=== PATIENT | male | born 1940 | race Caucasian/White ===

== ENCOUNTER 2021-09-24 12:53 | Inpatient (IN) | payer MEDICARE ==
[2021-09-24 16:19] VITALS: BMI 24.7
[2021-09-24] MEDS ORDERED: Senokot S 8.6-50 MG TAB PO PRN (18:33)
[2021-09-24] MEDS ORDERED: Acetaminophen 325 MG TAB PO PRN (18:33)
[2021-09-24] MEDS ORDERED: Ondansetron PF 4 MG/2 ML Vial IVP PRN (18:33)
[2021-09-24] MEDS ORDERED: Ketoconazole 2% Cream 15 gm Tube TOP PRN (18:35)
[2021-09-24] MEDS ORDERED: HumaLOG 300 UNITS/3 ML VIAL SC PRN (19:15)
[2021-09-24] MEDS ORDERED: Dextrose 5% in Water 1,000 ML IV PRN (19:15)
[2021-09-24] MEDS ORDERED: Dextrose 50% Abboject 50 ML SYRINGE SLOW IVP PRN (19:15)
[2021-09-24] MEDS ORDERED: hydrALAZINE 20 MG/ML VIAL SLOW IVP PRN (19:15)
[2021-09-24] MEDS ORDERED: Meropenem 1 GM in Sodium Chloride 0.9% 100 ML IVPB SCH ×2 (20:00→22:00)
[2021-09-24] MEDS: Lactated Ringer's 1,000 ML IV SCH (21:09)
[2021-09-24] MEDS: Amlodipine 5 MG TAB PO SCH (22:06)
[2021-09-24] MEDS: Ezetimibe 10 MG TAB PO SCH (22:07)
[2021-09-24] MEDS: hydrALAZINE 25 MG TAB PO SCH (22:07)
[2021-09-24] MEDS: Finasteride 5 MG TAB PO SCH (22:07)
[2021-09-24] MEDS: Losartan 25 MG TAB PO SCH (22:07)
[2021-09-24] MEDS: Insulin Glargine 30 UNITS/0.3 ML VIAL SC SCH (22:08)
[2021-09-25] MEDS: Meropenem 1 GM in Sodium Chloride 0.9% 100 ML IVPB SCH ×2 (06:14→17:29)
[2021-09-25] MEDS: Levothyroxine Sodium 100 MCG TAB PO SCH (06:14)
[2021-09-25 07:16] LABS: #Basophils 0.1 thou/uL (0.0-0.2); #Eosinphils 0.5 thou/uL (0.0-0.7); #Lymphocytes 1.7 thou/uL (1.20-3.40); #Monocytes 0.5 thou/uL (0.11-0.59); #Neutrophils 5.1 thou/uL (1.40-6.50); %Basophils 0.8 % (0.0-1.0); %Eosinophils 6.5 % (0.0-10.0); %Lymphocytes 21.8 % (21.0-51.0); %Monocytes 6.9 % (0.0-10.0); Hemoglobin 9.4 g/dL (14.0-18.0); Mean Corpuscular HGB CONC 33.3 g/dL (32.0-36.0); Mean Corpuscular Hemoglobin 30.1 pg (27.0-31.0); Mean Corpuscular Volume 90.5 fL (78.0-98.0); Mean Platelet Volume 7.3 fL (7.4-10.4); Platelet Count 260 thou/uL (130-400); RBC Distribution Width 12.5 % (11.5-14.5); Red Blood Cell (RBC) Count 3.12 mill/uL (4.70-6.10); White Blood Cell (WBC) Count 7.9 thou/uL (4.8-10.8)
[2021-09-25 07:36] LABS: Anion Gap 12 mmol/L (10-20); BUN (Urea Nitrogen) 38 mg/dL (8.4-25.7); Calc. Creatinine Clearance 43 mL/min (70-130); Calcium 8.7 mg/dL (7.8-10.44); Carbon Dioxide 16 mmol/L (23-31); Chloride 109 mmol/L (98-107); Glucose 148 mg/dL (83-110); Sodium 132 mmol/L (136-145)
[2021-09-25] MEDS: Losartan 25 MG TAB PO SCH ×2 (08:47→22:10)
[2021-09-25] MEDS: Aspirin Chewable 81 MG TAB PO SCH (08:47)
[2021-09-25] MEDS: Loratadine 10 MG TAB PO SCH (08:48)
[2021-09-25] MEDS: LACTINEX 1 TAB PO SCH (08:48)
[2021-09-25] MEDS: Cholecalciferol 1,000 UNITS (25 MCG) TAB PO SCH (08:48)
[2021-09-25] MEDS: Insulin Glargine 30 UNITS/0.3 ML VIAL SC SCH ×2 (08:50→22:14)
[2021-09-25] MEDS: Famotidine 20 MG TAB PO SCH (08:53)
[2021-09-25] MEDS: Alogliptin 25 MG TAB PO SCH (08:53)
[2021-09-25] MEDS ORDERED: Ubidecarenone [Co Q-10] 10 MG Capsule PO SCH (09:00)
[2021-09-25] MEDS: Lactated Ringer's 1,000 ML IV SCH (10:26)
[2021-09-25] MEDS: Multivitamins CHEW w/Iron Tablet PO SCH (10:33)
[2021-09-25] MEDS: hydrALAZINE 25 MG TAB PO SCH ×2 (10:33→22:09)
[2021-09-25] MEDS: HumaLOG 300 UNITS/3 ML VIAL SC PRN ×2 (12:56→18:31)
[2021-09-25] MEDS: Collagenase 250 UNITS/GM Ointment 30 GM TUBE TOP SCH (17:48)
[2021-09-25] MEDS: Finasteride 5 MG TAB PO SCH (22:08)
[2021-09-25] MEDS: Ezetimibe 10 MG TAB PO SCH (22:09)
[2021-09-25] MEDS: Amlodipine 5 MG TAB PO SCH (22:10)
[2021-09-26] MEDS: Meropenem 1 GM in Sodium Chloride 0.9% 100 ML IVPB SCH ×2 (05:48→17:43)
[2021-09-26] MEDS: Levothyroxine Sodium 100 MCG TAB PO SCH (05:48)
[2021-09-26] MEDS: HumaLOG 300 UNITS/3 ML VIAL SC PRN ×2 (05:49→13:35)
[2021-09-26] MEDS: Famotidine 20 MG TAB PO SCH (08:31)
[2021-09-26] MEDS: LACTINEX 1 TAB PO SCH (08:31)
[2021-09-26] MEDS: Aspirin Chewable 81 MG TAB PO SCH (08:32)
[2021-09-26] MEDS: Alogliptin 25 MG TAB PO SCH (08:32)
[2021-09-26] MEDS: hydrALAZINE 25 MG TAB PO SCH ×2 (08:32→20:44)
[2021-09-26] MEDS: Cholecalciferol 1,000 UNITS (25 MCG) TAB PO SCH (08:32)
[2021-09-26] MEDS: Loratadine 10 MG TAB PO SCH (08:33)
[2021-09-26] MEDS: Losartan 25 MG TAB PO SCH ×2 (08:33→20:43)
[2021-09-26] MEDS: Multivitamins CHEW w/Iron Tablet PO SCH (08:33)
[2021-09-26] MEDS: Insulin Glargine 30 UNITS/0.3 ML VIAL SC SCH ×2 (08:33→20:46)
[2021-09-26] MEDS: Lactated Ringer's 1,000 ML IV SCH ×2 (09:29→14:19)
[2021-09-26 09:58] LABS: Anion Gap 12 mmol/L (10-20); BUN (Urea Nitrogen) 36 mg/dL (8.4-25.7); Calc. Creatinine Clearance 41 mL/min (70-130); Calcium 8.6 mg/dL (7.8-10.44); Carbon Dioxide 19 mmol/L (23-31); Chloride 106 mmol/L (98-107); Glucose 171 mg/dL (83-110); Potassium 3.9 mmol/L (3.5-5.1); Sodium 133 mmol/L (136-145)
[2021-09-26] MEDS: Collagenase 250 UNITS/GM Ointment 30 GM TUBE TOP SCH (17:12)
[2021-09-26] MEDS: Finasteride 5 MG TAB PO SCH (20:43)
[2021-09-26] MEDS: Amlodipine 5 MG TAB PO SCH (20:43)
[2021-09-26] MEDS: Ezetimibe 10 MG TAB PO SCH (20:43)
[2021-09-27] MEDS: Lactated Ringer's 1,000 ML IV SCH ×2 (05:04→13:38)
[2021-09-27] MEDS: Meropenem 1 GM in Sodium Chloride 0.9% 100 ML IVPB SCH ×2 (05:05→16:26)
[2021-09-27] MEDS: Levothyroxine Sodium 100 MCG TAB PO SCH (05:28)
[2021-09-27 07:24] LABS: Anion Gap 11 mmol/L (10-20); BUN (Urea Nitrogen) 33 mg/dL (8.4-25.7); Calc. Creatinine Clearance 41 mL/min (70-130); Calcium 8.3 mg/dL (7.8-10.44); Carbon Dioxide 18 mmol/L (23-31); Chloride 108 mmol/L (98-107); Glucose 86 mg/dL (83-110); Potassium 4.2 mmol/L (3.5-5.1); Sodium 133 mmol/L (136-145)
[2021-09-27] MEDS: hydrALAZINE 25 MG TAB PO SCH ×2 (09:00→20:38)
[2021-09-27] MEDS: Loratadine 10 MG TAB PO SCH (09:01)
[2021-09-27] MEDS: Cholecalciferol 1,000 UNITS (25 MCG) TAB PO SCH (09:01)
[2021-09-27] MEDS: Losartan 25 MG TAB PO SCH ×2 (09:01→20:37)
[2021-09-27] MEDS: Aspirin Chewable 81 MG TAB PO SCH (09:01)
[2021-09-27] MEDS: MULTIVIT/IRON SULF/FOLIC ACID 1 EACH TAB PO SCH (09:01)
[2021-09-27] MEDS: LACTINEX 1 TAB PO SCH (09:01)
[2021-09-27] MEDS: Famotidine 20 MG TAB PO SCH (09:01)
[2021-09-27] MEDS: Insulin Glargine 30 UNITS/0.3 ML VIAL SC SCH ×2 (09:02→20:45)
[2021-09-27] MEDS: Alogliptin 25 MG TAB PO SCH (09:05)
[2021-09-27] MEDS: Collagenase 250 UNITS/GM Ointment 30 GM TUBE TOP SCH (13:37)
[2021-09-27] MEDS: Dextrose 5 %-0.45 % NaCl 1,000 ML IV SCH (16:18)
[2021-09-27 17:20] LABS: #Basophils 0.1 thou/uL (0.0-0.2); #Eosinphils 0.4 thou/uL (0.0-0.7); #Lymphocytes 2.1 thou/uL (1.20-3.40); #Monocytes 0.5 thou/uL (0.11-0.59); #Neutrophils 3.5 thou/uL (1.40-6.50); %Eosinophils 6.7 % (0.0-10.0); %Monocytes 7.7 % (0.0-10.0); %Neutrophils 52.6 % (42.0-75.0); Hemoglobin 8.8 g/dL (14.0-18.0); Mean Corpuscular HGB CONC 33.5 g/dL (32.0-36.0); Mean Corpuscular Hemoglobin 30.2 pg (27.0-31.0); Mean Corpuscular Volume 89.9 fL (78.0-98.0); Mean Platelet Volume 6.9 fL (7.4-10.4); Platelet Count 234 thou/uL (130-400); RBC Distribution Width 12.6 % (11.5-14.5); Red Blood Cell (RBC) Count 2.92 mill/uL (4.70-6.10); White Blood Cell (WBC) Count 6.7 thou/uL (4.8-10.8)
[2021-09-27] MEDS: Amlodipine 5 MG TAB PO SCH (20:38)
[2021-09-27] MEDS: Finasteride 5 MG TAB PO SCH (20:38)
[2021-09-27] MEDS: Ezetimibe 10 MG TAB PO SCH (20:40)
[2021-09-28] MEDS: Meropenem 1 GM in Sodium Chloride 0.9% 100 ML IVPB SCH ×2 (04:43→18:01)
[2021-09-28] MEDS: Dextrose 5 %-0.45 % NaCl 1,000 ML IV SCH ×2 (04:45→19:10)
[2021-09-28] MEDS: Levothyroxine Sodium 100 MCG TAB PO SCH (05:37)
[2021-09-28 07:51] LABS: Anion Gap 11 mmol/L (10-20); BUN (Urea Nitrogen) 28 mg/dL (8.4-25.7); Calc. Creatinine Clearance 46 mL/min (70-130); Calcium 8.4 mg/dL (7.8-10.44); Carbon Dioxide 19 mmol/L (23-31); Chloride 107 mmol/L (98-107); Glucose 80 mg/dL (83-110); Sodium 133 mmol/L (136-145)
[2021-09-28] MEDS: hydrALAZINE 25 MG TAB PO SCH ×2 (08:22→21:01)
[2021-09-28] MEDS: Cholecalciferol 1,000 UNITS (25 MCG) TAB PO SCH (08:23)
[2021-09-28] MEDS: Alogliptin 25 MG TAB PO SCH (08:23)
[2021-09-28] MEDS: Losartan 25 MG TAB PO SCH ×2 (08:23→21:02)
[2021-09-28] MEDS: Famotidine 20 MG TAB PO SCH (08:23)
[2021-09-28] MEDS: Loratadine 10 MG TAB PO SCH (08:23)
[2021-09-28] MEDS: Aspirin Chewable 81 MG TAB PO SCH (08:23)
[2021-09-28] MEDS: MULTIVIT/IRON SULF/FOLIC ACID 1 EACH TAB PO SCH (08:23)
[2021-09-28] MEDS: Collagenase 250 UNITS/GM Ointment 30 GM TUBE TOP SCH (08:24)
[2021-09-28] MEDS: Insulin Glargine 30 UNITS/0.3 ML VIAL SC SCH ×2 (09:30→22:19)
[2021-09-28] MEDS: Floranex 1 GM Packet PO SCH (09:31)
[2021-09-28] MEDS: Amlodipine 5 MG TAB PO SCH (21:00)
[2021-09-28] MEDS: Ezetimibe 10 MG TAB PO SCH (21:01)
[2021-09-28] MEDS: Finasteride 5 MG TAB PO SCH (21:01)
[2021-09-29] MEDS: Dextrose 5 %-0.45 % NaCl 1,000 ML IV SCH ×2 (01:56→17:16)
[2021-09-29] MEDS: Levothyroxine Sodium 100 MCG TAB PO SCH (05:36)
[2021-09-29] MEDS: Meropenem 1 GM in Sodium Chloride 0.9% 100 ML IVPB SCH ×2 (05:36→17:15)
[2021-09-29] MEDS: Cholecalciferol 1,000 UNITS (25 MCG) TAB PO SCH (10:08)
[2021-09-29] MEDS: Aspirin Chewable 81 MG TAB PO SCH (10:09)
[2021-09-29] MEDS: Losartan 25 MG TAB PO SCH ×2 (10:09→22:26)
[2021-09-29] MEDS: Alogliptin 25 MG TAB PO SCH (10:09)
[2021-09-29] MEDS: hydrALAZINE 25 MG TAB PO SCH ×2 (10:09→22:50)
[2021-09-29] MEDS: MULTIVIT/IRON SULF/FOLIC ACID 1 EACH TAB PO SCH (10:09)
[2021-09-29] MEDS: Loratadine 10 MG TAB PO SCH (10:09)
[2021-09-29] MEDS: Famotidine 20 MG TAB PO SCH (10:09)
[2021-09-29] MEDS: Floranex 1 GM Packet PO SCH (10:10)
[2021-09-29] MEDS: Collagenase 250 UNITS/GM Ointment 30 GM TUBE TOP SCH (10:11)
[2021-09-29] MEDS: Insulin Glargine 30 UNITS/0.3 ML VIAL SC SCH ×2 (10:12→22:50)
[2021-09-29] MEDS: HumaLOG 300 UNITS/3 ML VIAL SC PRN (17:18)
[2021-09-29] MEDS: Finasteride 5 MG TAB PO SCH (22:25)
[2021-09-29] MEDS: Ezetimibe 10 MG TAB PO SCH (22:26)
[2021-09-29] MEDS: Amlodipine 5 MG TAB PO SCH (22:48)
[2021-09-30] MEDS: Meropenem 1 GM in Sodium Chloride 0.9% 100 ML IVPB SCH ×2 (04:29→18:53)
[2021-09-30] MEDS: Levothyroxine Sodium 100 MCG TAB PO SCH (04:30)
[2021-09-30] MEDS: Aspirin Chewable 81 MG TAB PO SCH (09:57)
[2021-09-30] MEDS: Cholecalciferol 1,000 UNITS (25 MCG) TAB PO SCH (09:58)
[2021-09-30] MEDS: hydrALAZINE 25 MG TAB PO SCH ×2 (09:59→22:01)
[2021-09-30] MEDS: Famotidine 20 MG TAB PO SCH (09:59)
[2021-09-30] MEDS: Insulin Glargine 30 UNITS/0.3 ML VIAL SC SCH ×2 (10:00→20:32)
[2021-09-30] MEDS: Collagenase 250 UNITS/GM Ointment 30 GM TUBE TOP SCH (10:03)
[2021-09-30] MEDS: MULTIVIT/IRON SULF/FOLIC ACID 1 EACH TAB PO SCH (10:04)
[2021-09-30] MEDS: Losartan 25 MG TAB PO SCH ×2 (10:05→22:03)
[2021-09-30] MEDS: Loratadine 10 MG TAB PO SCH (10:06)
[2021-09-30] MEDS: Floranex 1 GM Packet PO SCH (10:15)
[2021-09-30] MEDS: Alogliptin 25 MG TAB PO SCH (10:15)
[2021-09-30] MEDS: Dextrose 5 %-0.45 % NaCl 1,000 ML IV SCH (14:21)
[2021-09-30] MEDS: Ezetimibe 10 MG TAB PO SCH (22:02)
[2021-09-30] MEDS: Amlodipine 5 MG TAB PO SCH (22:02)
[2021-09-30] MEDS: Finasteride 5 MG TAB PO SCH (22:03)
[2021-10-01] MEDS: Levothyroxine Sodium 100 MCG TAB PO SCH (04:26)
[2021-10-01] MEDS: Meropenem 1 GM in Sodium Chloride 0.9% 100 ML IVPB SCH ×2 (04:26→16:39)
[2021-10-01] MEDS: MULTIVIT/IRON SULF/FOLIC ACID 1 EACH TAB PO SCH (08:10)
[2021-10-01] MEDS: Floranex 1 GM Packet PO SCH (08:10)
[2021-10-01] MEDS: Collagenase 250 UNITS/GM Ointment 30 GM TUBE TOP SCH (08:10)
[2021-10-01] MEDS: hydrALAZINE 25 MG TAB PO SCH ×3 (08:10→21:02)
[2021-10-01] MEDS: Losartan 25 MG TAB PO SCH ×3 (08:10→21:04)
[2021-10-01] MEDS: Loratadine 10 MG TAB PO SCH (08:11)
[2021-10-01] MEDS: Cholecalciferol 1,000 UNITS (25 MCG) TAB PO SCH (08:11)
[2021-10-01] MEDS: Famotidine 20 MG TAB PO SCH (08:11)
[2021-10-01] MEDS: Insulin Glargine 30 UNITS/0.3 ML VIAL SC SCH ×3 (08:11→20:49)
[2021-10-01] MEDS: Aspirin Chewable 81 MG TAB PO SCH (08:11)
[2021-10-01] MEDS: Alogliptin 25 MG TAB PO SCH (08:15)
[2021-10-01] MEDS: Dextrose 5 %-0.45 % NaCl 1,000 ML IV SCH ×2 (10:34→12:45)
[2021-10-01] MEDS: Finasteride 5 MG TAB PO SCH ×2 (20:45→21:04)
[2021-10-01] MEDS: Amlodipine 5 MG TAB PO SCH ×2 (20:45→21:04)
[2021-10-01] MEDS: Ezetimibe 10 MG TAB PO SCH ×2 (20:45→21:04)
[2021-10-02] MEDS: Dextrose 5 %-0.45 % NaCl 1,000 ML IV SCH (04:48)
[2021-10-02] MEDS: Meropenem 1 GM in Sodium Chloride 0.9% 100 ML IVPB SCH (05:56)
[2021-10-02] MEDS: Levothyroxine Sodium 100 MCG TAB PO SCH ×2 (05:56→06:09)
[2021-10-02] MEDS: hydrALAZINE 25 MG TAB PO SCH (07:58)
[2021-10-02] MEDS: Floranex 1 GM Packet PO SCH (07:58)
[2021-10-02] MEDS: Aspirin Chewable 81 MG TAB PO SCH (07:58)
[2021-10-02] MEDS: Collagenase 250 UNITS/GM Ointment 30 GM TUBE TOP SCH (07:59)
[2021-10-02] MEDS: Loratadine 10 MG TAB PO SCH (07:59)
[2021-10-02] MEDS: Famotidine 20 MG TAB PO SCH (07:59)
[2021-10-02] MEDS: MULTIVIT/IRON SULF/FOLIC ACID 1 EACH TAB PO SCH (07:59)
[2021-10-02] MEDS: Losartan 25 MG TAB PO SCH (07:59)
[2021-10-02] MEDS: Cholecalciferol 1,000 UNITS (25 MCG) TAB PO SCH (07:59)
[2021-10-02 08:29] VITALS: TEMP 97.6
[2021-10-02 08:34] VITALS: BP 194/91
[2021-10-02] MEDS: Alogliptin 25 MG TAB PO SCH (09:14)
[2021-10-02] MEDS: Insulin Glargine 30 UNITS/0.3 ML VIAL SC SCH (09:52)
== END 2021-10-02 16:50 | disposition hospice, home (50) | DRG 689 ==
LOC: T4-B 12:53
PROVIDERS: ADMIT Hospitalist; ATTEND Internal Medicine
DX: N39.0 Urinary tract infection, site not specified (principal); G93.41 Metabolic encephalopathy; U07.1 COVID-19; E46 Unspecified protein-calorie malnutrition; Z66 Do not resuscitate; Z20.822 Contact with and (suspected) exposure to COVID-19; Z51.5 Encounter for palliative care; I25.10 Atherosclerotic heart disease of native coronary artery without angina pectoris; E78.00 Pure hypercholesterolemia, unspecified; F32.A Depression, unspecified; G47.33 Obstructive sleep apnea (adult) (pediatric); G30.9 Alzheimer's disease, unspecified; F02.80 Dementia in other diseases classified elsewhere, unspecified severity, without behavioral disturbance, psychotic disturbance, mood disturbance, and anxiety; N40.0 Benign prostatic hyperplasia without lower urinary tract symptoms; E11.40 Type 2 diabetes mellitus with diabetic neuropathy, unspecified; E11.65 Type 2 diabetes mellitus with hyperglycemia; K21.9 Gastro-esophageal reflux disease without esophagitis; C67.9 Malignant neoplasm of bladder, unspecified; E03.9 Hypothyroidism, unspecified; J44.9 Chronic obstructive pulmonary disease, unspecified; E11.22 Type 2 diabetes mellitus with diabetic chronic kidney disease; I12.9 Hypertensive chronic kidney disease with stage 1 through stage 4 chronic kidney disease, or unspecified chronic kidney disease; N18.30 Chronic kidney disease, stage 3 unspecified; R13.10 Dysphagia, unspecified; Z91.048 Other nonmedicinal substance allergy status; Z88.1 Allergy status to other antibiotic agents; Z79.82 Long term (current) use of aspirin; Z79.899 Other long term (current) drug therapy; Z79.890 Hormone replacement therapy; Z79.4 Long term (current) use of insulin; Z87.891 Personal history of nicotine dependence; Z68.24 Body mass index [BMI] 24.0-24.9, adult
CPT/HCPCS: 36415; 36416; 80048; 83036; 85025; J1815; J2185; J3490; J7042; J7120; J7999; U0003; U0005